=== PATIENT | female | born 1970 ===

== ENCOUNTER 2018-02-14 13:16 | Emergency (ER) | payer MEDICARE ==
--- NOTE | 2018-02-14 14:13 | ED PDOC ---
Syncope/Near Syncope/Dizziness Time Seen by Provider: 02/14/18 13:48 Chief Complaint (Nursing): Syncope Chief Complaint (Provider): Syncope History Per: Patient History/Exam Limitations: no limitations Onset/Duration Of Symptoms: Days (last night) Number Of Syncopal Episodes: 1 Fall Associated With With Symptoms: Positive Injury Additional Complaint(s): Yvette Solomon is a 47 year old female, with a past medical history s/p gastric sleeve x2 months ago, who presents to the emergency department for evaluation of syncopal episode onset last night. Patient fell with injury to right ribs, both knees and right ankle. Patient reports unknown duration of LOC and was not witnessed. She denies any other medical complaints. PMD: None provided. Past Medical History Reviewed: Historical Data, Nursing Documentation, Vital Signs Vital Signs: Last Vital Signs Temp 98.6 F 02/14/18 13:28 Pulse 77 02/14/18 13:28 Resp 20 02/14/18 13:28 BP 118/78 02/14/18 13:28 Pulse Ox 96 02/14/18 13:28 - Medical History PMH: Anemia, Anxiety, Arthritis (BILAT.KNEES-RIGHT>LEFT), Asthma (HOSPITALIZED EARLIER THIS YEAR 2014), Bipolar Disorder, Bronchitis, Depression, Kidney Stones (LASER [place]. DONE), Chronic Kidney Disease - Surgical History Surgical History: Endoscopy, Tonsillectomy Other surgeries: gastric sleeve x2 months ago - Family History Family History: States: Unknown Family Hx - Social History Ex-Smoker (has not smoked in the last 12 months): Yes Alcohol: None Drugs: Denies - Immunization History Hx Tetanus Toxoid Vaccination: Yes (02/16/13) Hx Influenza Vaccination: Yes Hx Pneumococcal Vaccination: Yes - Home Medications Home Medications: Ambulatory Orders Medication Instructions Recorded Paroxetine Hydrochloride 37.5 mg PO DAILY 03/26/14 [Paroxetine] Trazodone Hydrochloride [Trazodone 100 mg PO HS 03/26/14 HCl] Albuterol Sulfate [Ventolin Hfa] 0.09 mg IH BID PRN 09/21/14 Fluticasone/Salmeterol 250/50 1 puff IH Q12 09/21/14 [Advair Diskus] clonazePAM [Klonopin] 1 tab PO PRN PRN 11/27/14 Albuterol Sulfate [Proair Hfa] 2 puff IH PRN PRN 05/02/15 Albuterol Sulfate [Proair Hfa] 2 puff INH PRN PRN 05/02/15 Ciprofloxacin [Cipro] 1 tab PO Q12 05/02/15 Levocetirizine Dihydrochlori 5 mg PO DAILY 05/02/15 [Xyzal] Tiotropium [Spiriva] 1 cap PO DAILY 05/02/15 - Allergies Allergies/Adverse Reactions: Allergies Allergy/AdvReac Type Severity Reaction Status Date / Time codeine Allergy RASH Verified 02/14/18 13:27 morphine Allergy RASH Verified 02/14/18 13:27 Review of Systems ROS Statement: Except As Marked, All Systems Reviewed And Found Negative Cardiovascular: Positive for: Other (right ribs) Musculoskeletal: Positive for: Leg Pain (b/l knees), Foot Pain (right ankle) Neurological: Positive for: Other (syncope) Physical Exam - Reviewed Nursing Documentation Reviewed: Yes Vital Signs Reviewed: Yes - Physical Exam Appears: Positive for: No Acute Distress Head Exam: Positive for: ATRAUMATIC, NORMAL INSPECTION, NORMOCEPHALIC Skin: Positive for: Normal Color, Warm, Dry Eye Exam: Positive for: Normal appearance, EOMI, PERRL Neck: Positive for: Painless ROM, Supple Cardiovascular/Chest: Positive for: Regular Rate, Rhythm. Negative for: Chest Non Tender (Tenderness to right lateral lower ribs, no flail. ), Murmur Respiratory: Positive for: Normal Breath Sounds (equal breath sounds bilaterally ). Negative for: Respiratory Distress Gastrointestinal/Abdominal: Positive for: Normal Exam, Soft. Negative for: Tenderness Back: Positive for: Normal Inspection. Negative for: L CVA Tenderness, R CVA Tenderness, Vertebral Tenderness Extremity: Positive for: Normal ROM (upper and lower extremities), Tenderness ( bilateral knee tenderness, medially, right greater than left), Swelling (right ankle mild swelling to lateral malleolus). Negative for: Deformity (or swelling to bilateral knees) Neurologic/Psych: Positive for: Alert, Oriented (x3). Negative for: Motor/ Sensory Deficits - ECG O2 Sat by Pulse Oximetry: 96 (RA) Pulse Ox Interpretation: Normal Medical Decision Making Medical Decision Making: Time: 13:48 Initial Impression: syncopal episode with injuries to ribs, b/l knees and right ankle Initial Plan: --Head w/o contrast [CT] --EKG --CMP --Urine --CBC w/ differential --Knee 3 views BI [RAD] --Ankle right 3 views routine [RAD] --Reevaluation ----- Scribe Attestation: Documented by Salo Ricci, acting as a scribe for Jerald Daniels MD. Provider Scribe Attestation: All medical record entries made by the Scribe were at my direction and personally dictated by me. I have reviewed the chart and agree that the record accurately reflects my personal performance of the history, physical exam, medical decision making, and the department course for this patient. I have also personally directed, reviewed, and agree with the discharge instructions and disposition. Disposition - Clinical Impression Clinical Impression: Syncope - Patient ED Disposition Is Patient to be Admitted: Transfer of Care - Disposition Disposition: Transfer of Care Disposition Time: 14:54 Condition: FAIR Forms: [employer] (Amharic) Patient Signed Over To: No Tracey
--- NOTE | 2018-02-14 14:46 | CT ---
Date of service: 02/14/2018 PROCEDURE: CT HEAD WITHOUT CONTRAST. HISTORY: r/o bleed COMPARISON: None available. TECHNIQUE: Axial computed tomography images were obtained through the head/brain without intravenous contrast. Radiation dose: Total exam DLP = mGy-cm. This CT exam was performed using one or more of the following dose reduction techniques: Automated exposure control, adjustment of the mA and/or kV according to patient size, and/or use of iterative reconstruction technique. FINDINGS: HEMORRHAGE: No intracranial hemorrhage. BRAIN: No mass effect or edema. No atrophy or chronic microvascular ischemic changes. VENTRICLES: Unremarkable. No hydrocephalus. CALVARIUM: Unremarkable. PARANASAL SINUSES: Unremarkable as visualized. No significant inflammatory changes. MASTOID AIR CELLS: Unremarkable as visualized. No inflammatory changes. OTHER FINDINGS: None. IMPRESSION: Normal CT of the Head.
--- NOTE | 2018-02-14 15:09 | ED PDOC ---
- Laboratory Results Result Diagrams: 02/14/18 17:30 02/14/18 17:30 - ECG O2 Sat by Pulse Oximetry: 96 (RA) Pulse Ox Interpretation: Normal Medical Decision Making Medical Decision Makin Patient endorsed from Dr. Daniels's care to myself pending labs, x-ray, reassessment and discharge. Labs unremarkable. Xrays unremarkable Offered observation for syncope and she declined. Prefers to followup with PMD. DW pt findings and plan of care. Scribe Attestation: Documented by Susy Adhikari, acting as a scribe for No Tracey MD. Provider Scribe Attestation: All medical record entries made by the Scribe were at my direction and personally dictated by me. I have reviewed the chart and agree that the record accurately reflects my personal performance of the history, physical exam, medical decision making, and the department course for this patient. I have also personally directed, reviewed, and agree with the discharge instructions and disposition. Disposition Counseled Patient/Family Regarding: Studies Performed, Diagnosis, Need For Followup, Rx Given - Clinical Impression Clinical Impression: Syncope, Multiple contusions, Rib contusion - POA Present On Arrival: None - Disposition Referrals: Fransisca Tidwell [Family Provider] - 02/17/18 Disposition: Routine/Home Disposition Time: 18:14 Condition: STABLE Prescriptions: Ibuprofen [Motrin Tab] 600 mg PO Q8 PRN #30 tab PRN Reason: Pain, Moderate (4-7) Lidocaine 5% [Lidoderm] 1 ea TD DAILY PRN #20 patch PRN Reason: PAIN Instructions: Syncope (Fainting) (DC), Bruised Rib (DC), Contusion (DC)
[2018-02-14 15:28] VITALS: BP 104/63; PULSE 54; RESP 18; TEMP 98.5
[2018-02-14 16:35] VITALS: O2SAT 96
[2018-02-14 17:43] LABS: BASO % 0.4 % (0.0-2.0); EOS # 0.1 K/uL (0.0-0.7); HEMOGLOBIN 13.7 g/dL (12.0-16.0); LYMPH # 1.7 K/uL (1.0-4.3); LYMPH % 32.2 % (20.0-40.0); MEAN CELL VOLUME 95.4 fl (81.0-99.0); MEAN CORPUSCULAR HEMOGLOBIN 31.9 pg (27.0-31.0); MEAN CORPUSCULAR HGB CONC 33.5 g/dL (33.0-37.0); MEAN PLATELET VOLUME 11.9 fl (7.2-11.7); MONO # 0.6 K/uL (0.0-0.8); MONO % 10.3 % (0.0-10.0); NEUT % 56.1 % (50.0-75.0); NRBC % 0.2 % (0.0-0.0); RBC 4.29 Mil/uL (3.80-5.20); RED CELL DISTRIBUTION WIDTH 13.4 % (11.5-14.5); WHITE BLOOD COUNT 5.4 K/uL (4.8-10.8)
[2018-02-14 17:57] LABS: ALB/GLOB RATIO 1.5 (1.0-2.1); ALBUMIN 4.5 g/dL (3.5-5.0); ALT/SGPT 59 U/L (9-52); AST/SGOT 40 U/L (14-36); BLOOD UREA NITROGEN 22 mg/dl (7-17); CALCIUM 9.5 mg/dL (8.4-10.2); GFR NON-AFRICAN AMERICAN > 60
--- NOTE | 2018-02-14 18:33 | RAD ---
Date of service: 02/14/2018 PROCEDURE: Right Ankle Radiographs. HISTORY: trauma COMPARISON: None FINDINGS: BONES: Normal. No fracture. JOINTS: Normal. No osteoarthritis. Ankle mortise maintained. Talar dome intact SOFT TISSUES: Normal. OTHER FINDINGS: None. IMPRESSION: Normal right ankle radiographs.
--- NOTE | 2018-02-14 18:35 | RAD ---
Date of service: 02/14/2018 HISTORY: trauma COMPARISON: No prior FINDINGS: BONES: Normal. No fracture. JOINTS: Bilateral degenerative changes with medial joint space narrowing and marginal spur formation. SOFT TISSUE: Normal. OTHER FINDINGS: None . IMPRESSION: Bilateral degenerative changes with medial joint space narrowing and marginal spur formation.
--- NOTE | 2018-02-14 18:36 | RAD ---
Date of service: 02/14/2018 PROCEDURE: Radiographs of the Chest and Left Ribs. HISTORY: trauma COMPARISON: None available. TECHNIQUE: Frontal radiograph of the chest and multiple oblique radiographs of the left ribs were obtained. FINDINGS: LEFT RIBS: No fracture or focal lesion visualized. LUNGS: Clear. PLEURA: No pneumothorax or pleural fluid. CARDIOVASCULAR: Normal sized heart. No pulmonary vascular congestion. OTHER FINDINGS: None. IMPRESSION: Unremarkable radiographs of the chest and left ribs. No left rib fracture.
--- NOTE | 2018-02-15 08:04 | CARD ---
APPROVED REPORT Date of service: 02/14/2018 EKG Measurement Heart [id number] <Conclusion> Sinus bradycardia Otherwise normal ECG
== END 2018-02-14 18:51 | disposition home or self-care (01) ==
LOC: H.ER 13:16
DX: R55 Syncope and collapse (principal); S20.219A Contusion of unspecified front wall of thorax, initial encounter; S80.211A Abrasion, right knee, initial encounter; S80.212A Abrasion, left knee, initial encounter; S90.511A Abrasion, right ankle, initial encounter; W19.XXXA Unspecified fall, initial encounter; Y92.89 Other specified places as the place of occurrence of the external cause
CPT/HCPCS: 70450; 71101; 73562; 73610; 80053; 81025; 85025; 93005; 96374; 99285; J1885